=== PATIENT | female | born 1985 | race Caucasian/White ===

== ENCOUNTER → 2019-01-19 | Outpatient (CLI) | payer SELFPAY ==
[~2019-01-19] MED LIST: CATHETER FLUSH 10 ML SYR IV PRN; HOLD METFORMIN - RECEIVED CONTRAST 20 ML VIAL IV SCH; IOHEXOL 350 MG/ML 100 ML (OMNIPAQUE 350) VIAL IV ONE; NS 100 ML (IVPB) BAG IV ONE
--- NOTE | 2019-01-19 10:31 | Diagnostic Imaging Report ---
PROCEDURE: CT abdomen and pelvis with contrast. TECHNIQUE: Multiple contiguous axial images were obtained through the abdomen and pelvis after administration of intravenous contrast. Auto Exposure Controls were utilized during the CT exam to meet ALARA standards for radiation dose reduction. INDICATION: Left upper quadrant mass. COMPARISON: No prior studies are available for comparison. FINDINGS: The lung bases are clear. The liver is enlarged at 23 cm. There is diffuse low density throughout the liver consistent with hepatic steatosis. No discrete liver mass is identified. The gallbladder is surgically absent. No biliary ductal dilatation is seen. The pancreas and spleen are unremarkable. No adrenal mass is detected. Kidneys are unremarkable. Aorta is non-aneurysmal. The small and large bowel loops are normal caliber. No obstruction is seen. No free fluid or loculated fluid collection is identified. The bladder and uterus are unremarkable. No definite abdominal or pelvic lymphadenopathy is seen. IMPRESSION: 1. Hepatomegaly and hepatic steatosis. 2. Otherwise unremarkable CT of abdomen and pelvis. No mass or lymphadenopathy is seen. Dictated by: Dictated on workstation # [id number]
== END ==
LOC: RAD 09:44
PROVIDERS: ATTEND Nurse Practitioner Family
DX: K76.0 Fatty (change of) liver, not elsewhere classified (principal); R19.02 Left upper quadrant abdominal swelling, mass and lump
CPT/HCPCS: 74177

== ENCOUNTER 2020-06-09 15:53 | Emergency (ER) | payer SELFPAY ==
[~2020-06-09] VITALS: Ht 172.7 cm; Wt 140.9 kg
--- NOTE | 2020-06-09 16:39 | ED Upper Extremity ---
General Chief Complaint: Upper Extremity Stated Complaint: NECK/RIGHT ARM PAIN Source: patient Exam Limitations: no limitations History of Present Illness Date Seen by Provider: Jun 09, 2020 Time Seen by Provider: 16:25 Initial Comments This is a 34-year-old female who presents to the ER with complaints of neck pain and tingling in her right arm, index, and middle finger. States this has been occurring for approximately 3 weeks. Has been seen at Urgent Care, her PCP, and Chiropractor with minimal improvement. Was given Rx for Naproxen and Flexeril which she states minimally improved her symptoms. Her apt. with Chiropractor 5 days ago initially improved her symptoms for a day. States she missed her f/u appointment on Thursday (3 days ago) and her symptoms have progressively returned. She denies any injury or trauma. Does admit to looking down at her phone multiples hours during the day. Allergies and Home Medications Allergies Coded Allergies: No Allergy Information Available (Unverified , 01/19/19) Home Medications Cyclobenzaprine HCl 10 Mg Tablet, 10 MG PO Q8H PRN for SPASMS Prescribed by: ABDI BARRERA on 06/09/20 4510 Patient Home Medication List Home Medication List Reviewed: Yes Review of Systems Constitutional: no symptoms reported EENTM: no symptoms reported; No blurred vision, No double vision Respiratory: no symptoms reported Cardiovascular: no symptoms reported Gastrointestinal: no symptoms reported Genitourinary: no symptoms reported Musculoskeletal: see HPI Skin: no symptoms reported Psychiatric/Neurological: See HPI Physical Exam Vital Signs Vital Signs - First Documented 06/09/20 06/09/20 16:06 18:15 Temp 36.0 Pulse 93 Resp 18 B/P (MAP) 193/112 (139) Pulse Ox 96 O2 Delivery Room Air Capillary Refill : Height, Weight, BMI Height: '" Weight: lbs. oz. kg; BMI Method: General Appearance: WD/WN, no apparent distress HEENT: PERRL/EOMI, normal ENT inspection, pharynx normal Neck: supple, normal inspection, limited range of motion, tender lateral (right side ) Cardiovascular: normal peripheral pulses, regular rate, rhythm, no murmur Respiratory: normal breath sounds, no respiratory distress Gastrointestinal: normal bowel sounds, non tender, soft Back: normal inspection, no vertebral tenderness Shoulder: normal inspection, no evidence of injury, normal ROM Elbow/Forearm: normal inspection, non-tender, no evidence of injury, normal ROM, Right, Left Wrist: Yes normal inspection, Yes non-tender, Yes no evidence of injury, Yes no rmal ROM Hand: normal inspection, non-tender, no evidence of injury, normal ROM, Bilateral Neurologic/Tendon: normal sensation, normal motor functions, normal tendon functions Neurologic/Psychiatric: no motor/sensory deficits, alert, normal mood/affect, oriented x 3 Skin: normal color, warm/dry Progress/Results/Core Measures Results/Orders My Orders Orders - ADBI BARRERA APRN Ketorolac Injection (Toradol Injection) (06/09/20 16:45) Orphenadrine Inj (Ed Only) (Norflex Inje (06/09/20 16:45) Cervical Spine 3 Views Or Less (06/09/20 16:39) Medications Given in ED Vital Signs/I&O Progress Progress Note : Progress Note Patient examined in no acute distress. States that she ran out of her naproxen and her Flexeril, but that these only helped mildly. Due to extended length of pain as well as tingling in her arm, will obtain radiographs of C-spine. Radiographs reviewed and showed no acute abnormality. Offered Norflex and Toradol for pain relief, she is agreeable with this. Discussed holding her head in better position when playing on her phone avoiding extension and flexion. She is to follow-up with her primary care for persistent pain. States that Norflex and Toradol seem to be helping a bit, her blood pressure is noted to be extremely elevated. States that this occurs occasionally when she is in pain. Reports that her normal blood pressure is 130s over 80s. Discussed having close follow-up on Thursday to have her blood pressure rechecked and to return to ER for any new, worsening, concerning symptoms. She is agreeable with this. Diagnostic Imaging Diagonstic Imaging: Xray Plain Films/CT/US/NM/MRI: c-spine Comments NAME: WALLACE PARKER Linda MED REC#: [id number] PT STATUS: DEP ER : 1985 PHYSICIAN: ABDI BARRERA APRN ADMIT DATE: 06/09/20/ER Signed Date of Exam:06/09/20 CERVICAL SPINE 3 VIEWS OR LESS EXAMINATION: Cervical spine radiographs, 4 views. COMPARISON: None. HISTORY: 34-year-old female, neck pain. Tingling. FINDINGS: The lateral masses of C1 are well aligned relative to C2. Additional alignment of the cervical spine is unremarkable. There is no prominent prevertebral soft tissue swelling. The C7-T1 disc space is not well evaluated. There is no identified cervical disc height loss. There is no identified acute fracture. The uncovertebral joints are unremarkable. IMPRESSION: Unremarkable radiographic evaluation of the cervical spine. Dictated by: Dictated on workstation # [id number] Dict: 06/09/201702 Trans: 06/09/201811 CVB [id number] Interpreted by: DWAIN AGUIRRE MD Electronically signed by: DWAIN AGUIRRE MD 06/09/201811 Reviewed: Reviewed by Me Departure Impression Primary Impression: Cervical radiculopathy at C7 Disposition: 01 HOME, SELF-CARE Condition: Improved Departure-Patient Inst. Decision time for Depature: 17:51 Referrals: [facility] [place] Primary Care Physician VIVIANA COLON APRN (Family) Primary Care Physician Patient Instructions: Radiculopathy (DC) Add. Discharge Instructions: Plan: 1. Discharge home. 2. Follow up with your provider on Thursday for evaluation of your blood pressure. 3. May use Tylenol or Ibuprofen as needed for pain. May take Ibuprofen 600mg every 8 hours with Norflex for pain. 4. Apply ice/heat 20 minutes at a time 4-6x per day. 5. Return to ER for any new, worsening, or concerning symptoms. All discharge instructions reviewed with patient and/or family. Voiced understanding. Scripts Cyclobenzaprine HCl (Cyclobenzaprine HCl) 10 Mg Tablet 10 MG PO Q8H PRN for SPASMS, #15 TAB 0 Refills Prov: ABDI BARRERA APRN 06/09/20 ABDI BARRERA APRN Jun 09, 2020 16:39
[2020-06-09] MEDS ORDERED: KETOROLAC 60 MG/2 ML VIAL IM ONE (16:45)
[2020-06-09] MEDS ORDERED: ORPHENADRINE 60 MG/2 ML (NORFLEX) AMP (ED ONLY) IM ONE (16:45)
--- NOTE | 2020-06-09 17:11 | Diagnostic Imaging Report ---
EXAMINATION: Cervical spine radiographs, 4 views. COMPARISON: None. HISTORY: 34-year-old female, neck pain. Tingling. FINDINGS: The lateral masses of C1 are well aligned relative to C2. Additional alignment of the cervical spine is unremarkable. There is no prominent prevertebral soft tissue swelling. The C7-T1 disc space is not well evaluated. There is no identified cervical disc height loss. There is no identified acute fracture. The uncovertebral joints are unremarkable. IMPRESSION: Unremarkable radiographic evaluation of the cervical spine. Dictated by: Dictated on workstation # [id number]
[2020-06-09] MEDS ORDERED: CYCL10TA9 PO (17:53)
[2020-06-09 18:15] VITALS: BP 177/103
== END 2020-06-09 18:15 | disposition home or self-care (01) ==
LOC: EDUNIT# 15:53 → ER 15:56
DX: M54.12 Radiculopathy, cervical region (principal); I10 Essential (primary) hypertension
CPT/HCPCS: 72040